=== PATIENT | male | born 1960 | race Caucasian/White ===

== ENCOUNTER 2018-10-23 13:41 | Day surgery (SDC) | payer OTHER ==
[2018-10-23] MEDS ORDERED: LR 1,000 ML IV ONE (15:58)
--- NOTE | 2018-10-23 16:00 | PDANEPAE ---
ANE History of Present Illness UPJ obstruction with stone, right side ANE Past Medical History - Cardiovascular History Hx Hypertension: No Hx Arrhythmias: No Hx Chest Pain: No Hx Coronary Artery / Peripheral Vascular Disease: No Hx CHF / Valvular Disease: No Hx Palpitations: No - Pulmonary History Hx COPD: No Hx Asthma/Reactive Airway Disease: No Hx Recent Upper Respiratory Infection: No Hx Oxygen in Use at Home: No Hx Sleep Apnea: No Sleep Apnea Screening Result - Last Documented: Negative - Neurologic History Hx Cerebrovascular Accident: No Hx Seizures: No Hx Dementia: No - Endocrine History Hx Diabetes: No - Renal History Hx Renal Disorders: Yes Renal History Comment: KIDNEY STONES LAST WEEK. CURRENT STENT - Liver History Hx Hepatic Disorders: No - Neurological & Psychiatric Hx Hx Neurological and Psychiatric Disorders: No - Cancer History Hx Cancer: No - Congenital Disorder History Hx Congenital Disorders: No - GI History GERD: no Hx Gastrointestinal Disorders: No - Other Health History Other Health History: NONE - Chronic Pain History Chronic Pain: No - Surgical History Prior Surgeries: 10/13/18 URETERAL STENT PLACED AT [facility]. VASECTOMY ANE Review of Systems Review of systems is: negative Review of Systems: - Exercise capacity METS (RN): 4 METS ANE Patient History - Allergies Allergies/Adverse Reactions: No Known Allergies Allergy (Verified 10/20/18 16:36) - Home Medications Home medications: home medication list seen and reviewed Home Medications: Herbals/Supplements -Info Only 10/20/18 [Last Taken 10/20/18] - NPO status NPO Status: no food or drink >8 hours NPO Since - Liquids (Date): 10/23/18 NPO Since - Liquids (Time): 12:00 NPO Since - Solids (Date): 10/23/18 NPO Since - Solids (Time): 06:00 - Anes Hx Anes Hx: no prior problems - Smoking Hx Smoking Status: Former smoker Marijuana use: No - Alcohol Use Alcohol Use: None - Family Anes Hx Family Anes Hx: none Family Hx Anesthesia Complications: NONE ANE Labs/Vital Signs - Vital Signs Blood Pressure: 137/97 Heart Rate: 70 Respiratory Rate: 16 O2 Sat (%): 94 Height: 177.8 cm Weight: 92.986 kg ANE Physical Exam - Airway Neck exam: FROM Mallampati Score: Class 2 Mouth exam: normal dental/mouth exam - Pulmonary Pulmonary: no respiratory distress, clear to auscultation - Cardiovascular Cardiovascular: regular rate and rhythym, no murmur, rub, or gallop - ASA Status ASA Status: II ANE Anesthesia Plan Anesthesia Plan: GA w LMA
[2018-10-23] MEDS ORDERED: MIDAZOLAM 2 MG/2 ML VIAL IVP ONE (16:27)
[2018-10-23] MEDS ORDERED: fentaNYL 250 MCG/5 ML INJ ONE (16:29)
[2018-10-23] MEDS ORDERED: PROPOFOL 200 MG/20 ML VIAL ONE (16:29)
[2018-10-23] MEDS ORDERED: LIDOCAINE 2% 2 ML INJ ONE (16:31)
--- NOTE | 2018-10-23 16:36 | PDGENHP ---
History and Physical - Chief Complaint right UPJ obs, stone - History of Present Illness 58M w chronic R back/flank pain for 2 yrs presents for treatment of UPJ obs and stone after stent placed 1.5wk ago for infection in setting of UPJ obs and stone. Right flank pain resolved since placement of stent. Otherwise healthy, no cardiac or pulm issues. CT urogram personally reviewed and reviewed w radiology - right UPJ obs with no clear evidence of crossing vessel although there are vessels near by the ureter at the area of UPJ obs. R kidney stone in renal pelvis. Stent in place. History Information - Allergies/Home Medication List Allergies/Adverse Reactions: No Known Allergies Allergy (Verified 10/20/18 16:36) Home Medications: Herbals/Supplements -Info Only 10/20/18 [Last Taken 10/20/18] I have personally reviewed and updated: family history, medical history, social history, surgical history - Social History Smoking Status: Former smoker Alcohol Use: None Review of Systems Review of Systems: ROS: 10pt was reviewed & negative except for what was stated in HPI & below Physical Exam Physical Exam: AFVSS Gen NAD A*O CV regular Lungs Normal effort Abd soft Ext warm SKin moist Temp Pulse Resp BP Pulse Ox 36.5 C 70 16 137/97 H 94 10/23/18 15:40 10/23/18 16:26 10/23/18 16:26 10/23/18 16:26 10/23/18 16:26 Assessment & Plan Assessment: R UPJ obs w renal pelvis stone. Stent in place. Plan: To the OR for diagnostic URS, possible retrograde endopyelotomy, possible laser lithotripsy of stone. Discussed risks including bleeding, infection, pain, injury to urethra, bladder , R ureter, surrounding tissues. Need for subsequent tissues. Inability to gain access to UPJ obs, inability to treat UPJ obs, inability to treat stone, and thus need for subsequent procedures. He understood and agreed to proceed. Consent received. Becca eagle.
[2018-10-23] MEDS ORDERED: ceFAZolin 2 GM/DEXTROSE 100 ML IV ONE (16:38)
[2018-10-23] MEDS ORDERED: OPIUM/BELLADONNA ALKALO SUPP PR PRN (16:38)
[2018-10-23] MEDS ORDERED: HYDROmorphONE/DILAUDID 2 MG/ML INJ IVP PRN (17:04)
[2018-10-23] MEDS ORDERED: PROMETHAZINE HCL 25 MG/ML INJ IVP PRN (17:04)
[2018-10-23] MEDS ORDERED: MEPERIDINE 25 MG/0.5 ML AMP IVP PRN (17:04)
[2018-10-23] MEDS ORDERED: fentaNYL 100 MCG/2 ML INJ IVP PRN (17:04)
[2018-10-23] MEDS ORDERED: NALOXONE HCL 0.4 MG/ML INJ IVP PRN (17:04)
[2018-10-23] MEDS ORDERED: IOPAMIDOL (ISOVUE-M 300) 15 ML VIAL ONE (18:14)
[2018-10-23] MEDS: LIDOCAINE 2% JELLY 20 ML (UROJECT) ONE ×2 (18:17→19:04)
[2018-10-23] MEDS: OPIUM/BELLADONNA ALKALO SUPP PR ONE ×2 (18:18→19:05)
--- NOTE | 2018-10-23 19:08 | POSTANESTH ---
Post Anesthetic Evaluation Cardiovascular Status: Normal, Stable Respiratory Status: Normal, Stable Level of Consciousness/Mental Status: Can Participate in Eval Pain Control: Adequate, Prn Tx Ordered Nausea/Vomiting Control: Adequate, Prn Tx Ordered Complications Possibly Related to Anesthesia: None Noted
[2018-10-23] MEDS ORDERED: fentaNYL 100 MCG/2 ML INJ ONE (19:35)
--- NOTE | 2018-10-23 19:50 | POSTOPPROG ---
Post Op Note Date of Operation: 10/23/18 Surgeon: Adore Otero Anesthesiologist: Becky Anesthesia: LMA Pre-op Diagnosis: right UPJ obs, renal stones Post-op Diagnosis: same Indication: right UPJ obs, renal stones Procedure: cysto,RURS,laser lithotripsy, stent, RGP Findings: UPJ without stricture, renal pelvis massive, unable to remove stones Inf/Abcess present in the surg proc area at time of surgery?: No Complications: none, patient tolerated procedure well
[2018-10-23 20:38] VITALS: BP 151/96
--- NOTE | 2018-10-24 09:23 | GOP ---
DATE OF OPERATION: 10/23/2018 SURGEON: Adore Otero MD ANESTHESIA: LMA. ANESTHESIOLOGIST: Dr. Pena. PREOPERATIVE DIAGNOSIS: Right ureteropelvic junction obstruction, right renal stones, pain. POSTOPERATIVE DIAGNOSIS: Right ureteropelvic junction obstruction, right renal stones, pain. PROCEDURE PERFORMED: Cystoscopy, right ureteroscopy, laser lithotripsy, retrograde pyelogram, and st ent, 6-Latvian multivariable. FINDINGS: The UPJ obstruction without any anatomical structure or lesion at the area of UPJ narrowin g. The renal pelvis was massive. The scope was unable to navigate around the entire pelvis and I co uld not navigate the scope to the calices. The stones were difficult to access due to the massive pe lvis and due to my inability of scopes to reach the stones and my basket to grasp the stones. I did grasp the smaller stones with a basket eventually and did try to laser this into small fragments, but due to the difficult anatomy, it was not possible to completely laser the stone into a size that cou ld be removed, and the size I did laser it down to I was unable to pull that through the sheath, so a t this point, due to inability to treat the stones and the massive dilation and the fact that there w as not a stricture that was leading to this ureteropelvic junction obstruction, I felt best to end th e case and discuss a dismembered pyeloplasty procedure with him at a later date. SPECIMENS: None. INDICATIONS: The patient presented to [facility] a couple weeks ago with acutely worsenin g right flank pain. He had been having right flank pain for over [address] scan was done with c ontrast but without delayed images and showed a massive renal pelvis with likely ureteropelvic juncti on obstruction and 2 stones in the renal pelvis. At this time at [facility], it appeared he may have a urinary tract infection and so a stent was just placed and the stent went up easily, and he p resents today for treatment of the stones and evaluation of the UPJ. The rationale, risks and benefi ts including bleeding, infection, pain, injury to the urethra bladder or ureter, inability to gain ac cess to the renal pelvis, need to possibly do laser endopyelotomy to go through the pelvic junction o bstruction, need to treat the stones at a later date or need for subsequent procedures were discussed in detail with the patient and he agreed to proceed. DESCRIPTION OF PROCEDURE: The patient was taken back to the cystoscopy suite, placed on the cystosco py table in the supine position. General anesthesia induced without complication. Time-out performe d. Core measures satisfied including placement of a Derick Hugger, SCDs and administration of 2 g Ance f antibiotics. He was brought to the end of the table, placed in dorsal lithotomy position. All pre ssure points padded. Genitalia draped and prepped in standard surgical fashion with Betadine. A rig id cystoscope easily cannulated the urethral meatus and was advanced atraumatically into the bladder. I grasped the distal end of the stent and externalized the distal end and then placed a wire throug h the lumen of the stent and with fluoroscopic guidance verified the wire was up in the right collect ing system. I removed the stent over the wire leaving the wire in place and then placed a 2nd Glidew jennifer with fluoroscopic and cystoscopic guidance in the right collecting system. Due to my inability t o know what was going on at the ureteropelvic junction I decided to do a rigid ureteroscope and so I passed the rigid ureteroscope through the urethra and into the right ureter and it advanced easily al l the way up into the renal pelvis. At this point, I knew that the pelvic junction obstruction was n ot due to stricture or narrowing and it was likely due to an aperistaltic segment of ureter or a nonfunctioning segment of ureter at the ureteropelvic junction. At this point, I removed the s cope and otherwise the entire ureter appeared normal without any lesions or strictures. I removed th e rigid scope and then placed a sheath 14-Latvian ureteral access sheath without difficulty , and advanced directly into the renal pelvis. The renal pelvis was massive. I advanced the sheath all the way into the renal pelvis and then advanced a flexible ureteroscope into the renal pelvis and the pelvis was massively dilated and my scope would not even reach the stones that were in the depen dent posterior part of the pelvis. The scope was completely retroflexed around itself in order to ge t to those stones and when I saw the stones, I could not laser those in place because I was worried I would laser my scope because I could see my scope in my vision because I was literally retroflex eric und it. At this point, I decided to advance the basket to the level of the stone and with much difficulty, I was able to basket 1 of the stones, which was the smaller of the 2 stones and bring that into my visi on and then I passed the laser fiber to the level of the stone, but due to where the stone was and wh ere the laser fiber came out, it was very difficult to laser the stone. I could not adjust the stone easily because the renal pelvis was just a massive pool of urine and if I opened the basket up the s tone would just fall back into the dependent portion of the pelvis. So I decided then to aspirate out the renal pelvis and I aspirated out probably over 100 mL of urine from the renal pelvis. I thought that this would help bring the stones closer to me and it did but it made still lasering very diffic ult and at this point, I realized I was not going to be able to get the larger stone out because it w as probably too large to even basket easily and given the anatomy now that I know that he has a nonfu nctioning segment of ureter and this massively dilated renal pelvis, my recommendation was to end thi s case and then discuss a future robotic case of pyeloplasty with him and his . So at this point , I did another retrograde and removed the sheath and the scope together. Also of note that the jd l pelvis was quite cloudy as well when I went in there so I know that the urine is not draining well. So at this point, I removed the sheath and the scope together leaving my wire in place and then was able to place with cystoscopic and fluoroscopic guidance a 6-Latvian multivariable stent with a nice curl in the renal pelvis and a nice curl in the bladder. His bladder was emptied. Lidocaine jelly p laced per urethra and a belladonna opium suppository placed per rectum. At this point, the procedure was considered complete. He was awakened from anesthesia and transferred to PACU in good condition. COMPLICATIONS: None. /[id number]/MODL
== END 2018-10-23 21:09 | disposition home or self-care (01) ==
LOC: FSGY 13:41
PROVIDERS: ATTEND Urology
DX: N28.89 Other specified disorders of kidney and ureter (principal); N13.39 Other hydronephrosis; N20.0 Calculus of kidney
CPT/HCPCS: 52356; 74178; 76001; C1769; C1894; C2625; J0690; J2704; J3010; Q9967

== ENCOUNTER → 2018-10-23 | Outpatient (CLI) | payer OTHER ==
[~2018-10-23] MED LIST: IOPAMIDOL (ISOVUE-300) 100 ML BTL ONE; IOPAMIDOL (ISOVUE-M 300) 15 ML VIAL ONE; LIDOCAINE 2% JELLY 20 ML (UROJECT) ONE; MIDAZOLAM 2 MG/2 ML VIAL ONE; OPIUM/BELLADONNA ALKALO SUPP PR ONE
== END ==
LOC: FIMAGING 13:45
PROVIDERS: ATTEND Urology
DX: N20.0 Calculus of kidney (principal)
CPT/HCPCS: J2250; Q9967